=== PATIENT | female | born 1980 | race Hispanic/Latino ===

== ENCOUNTER 2025-01-11 14:32 | Emergency (ER) | payer SELFPAY ==
[~2025-01-11] VITALS: Ht 153.7 cm; Wt 75.0 kg
[2025-01-11] VITALS (12 sets, daily range): BP systolic 108–154; BP diastolic 60–93
[~2025-01-11 14:32] MED LIST: AMOXICILLIN500 MG PO; CIPROFLOXACN500 MG PO; FLEXERIL PO; LEVOTHYROXIN50 MC1 PO; NAPROSYN500 MG PO; TEMAZEPAM15 MG PO; TRAZODONE100 MG PO; ULTRAM50 M1 PO
[2025-01-11] MEDS ORDERED: LEVOTHYROXIN125 MCG PO (14:49)
[2025-01-11 15:05] LABS: URINE BILIRUBIN - DIPSTICK Negative (NEGATIVE); URINE BLOOD DIPSTICK Negative (NEGATIVE); URINE GLUCOSE - DIPSTICK Negative (NEGATIVE); URINE KETONE Negative (NEGATIVE); URINE LEUK ESTERASE Negative (NEGATIVE); URINE NITRITE - DIPSTICK Negative (Negative); URINE PROTEIN - DIPSTICK Negative (NEG-TRACE); URINE SPECIFIC GRAVITY 1.015; URINE UROBILINOGEN - DIPSTICK 0.2 E.U./dL (0.2)
[2025-01-11 15:05] LABS: BASO% 0.4 % (0-3); EOS% 1.3 % (0-8); HEMATOCRIT 34.5 % (37.0-47.0); HEMOGLOBIN 11.2 g/dl (12.0-16.0); IMMATURE GRANULOCYTES 0.3 % (0.0-5.0); LYMPH% 33.9 % (15-41); MEAN CELL VOLUME 83.9 fL CALC (80.0-100.0); MEAN CORPUSCULAR HGB 27.3 pG CALC (26.0-32.0); MEAN CORPUSCULAR HGB CONC 32.5 g/dL CAL (32.0-36.0); MONO% 4.3 % (2-13); NEUT# 4.47 thou/uL (2.00-7.15); NEUT% 59.8 % (42-76); RED BLOOD COUNT 4.11 mill/uL (4.20-5.60); RED CELL DISTRI WIDTH 16.5 % (11.5-15.5)
[2025-01-11 15:09] LABS: URINE COLOR Yellow
[2025-01-11 15:22] LABS: ALBUMIN 3.9 g/dL (3.2-5.0); ALKALINE PHOSPHATASE 99 u/l (38-126); ANION GAP 11 (6-22 (CALC)); BILIRUBIN, TOTAL 0.6 mg/dL (0.02-1.3); BUN 7 mg/dL (7-17); BUN/CREATININE RATIO 12 (12-20 (CALC)); CARBON DIOXIDE 21 mmol/l (22-30); CHLORIDE 109 mmol/l (95-108); CREATININE 0.6 mg/dL (0.5-1.0); ESTIMATED GFR 114 ML/MIN (>=90 (CALC)); MAGNESIUM 1.7 mg/dL (1.6-2.3); SGOT/AST 27 u/l (14-36); SODIUM 137 mmol/l (137-146); TOTAL PROTEIN 7.4 g/dL (6.3-8.2)
[2025-01-11 15:25] LABS: D-DIMER 0.22 mg/L (0.19-0.60); INTERNATIONAL NORMALIZED RATIO 0.9 RATIO (0.7-1.3)
[2025-01-11 15:27] LABS: PROTHROMBIN TIME 9.9 SECONDS (9.0-12.5)
== END 2025-01-11 18:54 | disposition home or self-care (01) | DRG 310 ==
LOC: ED 14:32
PROVIDERS: Nurse Practitioner
DX: R00.2 Palpitations (principal); E06.3 Autoimmune thyroiditis